=== PATIENT | female | born 2000 | race Caucasian/White ===

== ENCOUNTER 2025-11-10 23:33 | Inpatient (IN) | payer SELFPAY ==
[2025-11-10 23:34] VITALS: BP 129/67; PULSE 105; RESP 18; TEMP 36.4; O2SAT 100; BMI 20.3
[2025-11-11] VITALS (32 sets, daily range): BP systolic 100–177; BP diastolic 57–120; PULSE 100–122; RESP 12–30; TEMP 36.4–37.1; O2SAT 98–100; BMI 20.5; BMI 20.6
[2025-11-11] MEDS: 0.9% Normal Saline (1000mL) 1,000 ML 999 ML IV ×3 (00:01→08:30)
--- NOTE | 2025-11-11 00:01 | EDS_ITS ---
HPI History of Present Illness Chief Complaint: Nausea/Vomiting Narrative Narrative: Patient was seen and examined after presenting to ED for nausea and vomiting started earlier today they went drinking the day before she apparently has had episodes of bloody vomit before has been scoped has not been told that she has had esophageal varices or any other findings that would describe it patient did have some AAA yesterday. PFSH PFS Medical History Type 1 diabetes Allergy/AdvReac Type Severity Reaction Status Date / Time No Known Allergies Allergy Verified 11/10/25 23:34 Social History Smoking Status: Never smoker ROS ROS ED ROS Narrative Pertinent Positives: Nausea vomiting appears bloody Pertinent Negatives: Anticoagulation fevers chills black or bloody stool The remainder of review of systems negative unless otherwise stated in the HPI above. Systems reviewed including constitutional, psychiatric, cardiovascular, respiratory, integument, HENT, gastrointestinal. EXAM Physical Exam Narrative Exam Narrative: Afebrile hemodynamically stable she does not appear toxic but she appears somewhat ill oxygenating well she is actively vomiting does appear darker there could be a blood tinge to it abdomen is soft nontender nondistended intact and equal MSPs. Const Vital Signs: 11/10/25 23:34 11/11/25 00:34 11/11/25 01:00 Temperature 97.5 F L Temperature Source Oral Pulse Rate 105 H 111 H 100 Respiratory Rate 18 16 Blood Pressure 129/67 H 125/57 H 100/70 Blood Pressure Mean 87 79 80 Pulse Ox 100 99 100 Oxygen Delivery Method Room Air MDM MDM MDM Narrative Medical decision making narrative: Nursing notes, triage notes, available previous documentation, and vital signs were reviewed. Any discrepancies noted were addressed. Differential Diagnoses: Could be gastroenteritis we need to evaluate if this is actually bloody low suspicion for varices Interventions: Zofran insulin with insulin drip Fluids Given: 1 L normal saline Labs Reviewed: Patient has leukocytosis 15.7 hemoglobin is 10.4 platelets are 541 patient has a high anion gap with a metabolic acidosis concerning for DKA h er potassium is 5.0 her anion gap is 27 glucose is 579 slight transaminitis but nothing significant and she is not . Venous blood gas she is just slightly acidotic at 7.30 with her pH but pCO2 is 19 with a bicarb of 9 her Hemoccult for her gastric contents was positive for blood and her urine shows 150 ketones Previous Documentation Reviewed: None available or applicable at this time. ED Course: Patient presenting with darker appearing emesis she has been vomiting all day she states that she was scoped before at [facility] with no findings that would describe her emesis. 11/11/2025 at 0219: Patient appears to have put herself into DKA from all the vomiting which was bloody emesis patient can be seen by GI in the hospital as we do have GI coverage today I had a [id number] discussion with the hospitalist who is agreeable to admission this patient should go to the ICU. This note was made utilizing voice recognition software. All attempts were made to correct spelling or other errors prior to note completion. However, due to the fast-paced nature of emergency medicine, some errors may still be present. Lab Data Labs: Laboratory Results - last 24 hr 11/10/25 11/11/25 11/11/25 23:53 01:02 01:13 WBC 15.7 H RBC 4.24 Hgb 10.4 L Hct 33.2 L MCV 78.3 L MCH 24.5 L MCHC 31.3 L RDW Std Deviation 46.9 H RDW Coeff of Curt 16.6 H Plt Count 541 H MPV 9.9 Immature Gran % (Auto) 0.600 Neut % (Auto) 87.3 H Lymph % (Auto) 7.4 L [place] % (Auto) 4.1 Eos % (Auto) 0.1 Baso % (Auto) 0.5 Absolute Neuts (auto) 13.7 H Absolute Lymphs (auto) 1.17 Nucleated RBC % 0 Sodium Cancelled 137 Potassium Cancelled 5.0 Chloride Cancelled 98 Carbon Dioxide Cancelled 12.0 L Anion Gap Cancelled 27 H BUN Cancelled 17 Creatinine Cancelled 1.12 Estim Creat Clear Calc 72.16 Est GFR (MDRD) Non-Af Cancelled 70 BUN/Creatinine Ratio Cancelled 15.2 Glucose Cancelled 579 H* Calcium Cancelled 9.1 Total Bilirubin Cancelled 0.37 AST Cancelled 61 H ALT Cancelled 28 Alkaline Phosphatase Cancelled 134 H Total Protein Cancelled 6.9 Albumin Cancelled 3.6 Globulin Cancelled 3.3 Albumin/Globulin Ratio Cancelled 1.1 Lipase 20 Serum , Qual NEGATIVE Urine Color Yellow Urine Clarity Clear Urine pH 6.0 Ur Specific [place] 1.015 Urine Protein 30 H Urine Glucose (UA) 1000 H Urine Ketones 150 A* Urine Occult Blood Negative Urine Nitrite Negative Urine Bilirubin Negative Urine Urobilinogen Normal Ur Leukocyte Esterase 25 H Urine RBC 0-5 SEEN Urine WBC 5-10 SEEN Ur Squamous Epith Cells 5-10 SEEN Urine Bacteria RARE Urine Mucus 0 SEEN Urine Yeast RARE Blood Type O POSITIVE Antibody Screen NEGATIVE ABG Data ABG results: ABG 11/11/25 02:10 Specimen Type CIARAN Sample Site Not entered VBG pH 7.30 L VBG pO2 86 H VBG HCO3 10 L VBG Total CO2 10 L VBG O2 Sat (Calc) 96 H VBG Base Excess -17 L POC Mix VBG pCO2 Pt Tmp 19.4 L O2 Delivery Device Room Air Discharge Plan Triage Chief Complaint: Nausea/Vomiting ED Provider: Georgina Erazo Dx/Rx/DC Orders Primary Care Provider: Care Physician,No Primary Referrals: Care Physician,No Primary [Primary Care Provider, Medical] Print Language: Lao
[2025-11-11 00:14] LABS: Hematocrit 33.2 % (37-47); Hemoglobin 10.4 g/dL (12.0-15.0); Immature Granulocytes Count 0.090 X10^3/uL (0.0-0.0); Mean Corp Hgb Conc 31.3 g/dL (32-36); Mean Corpuscular Volume 78.3 fL (81-99); Mean Platelet Vol. 9.9 fl (6.2-12.0); NRBC Flagged by Analyzer 0 % (0-5); Platelet Count 541 K/mm3 (150-450); RBC Distribution Width CV 16.6 % (11.6-14.6); RBC Distribution Width SD 46.9 fl (35.1-43.9); Red Blood Count 4.24 M/mm3 (4.2-5.4); White Blood Count 15.7 K/mm3 (4.4-11.0)
[2025-11-11 00:40] LABS: Lipase 20 U/L (13-75)
[2025-11-11 01:00] LABS: Internal QC Validated? YES +Cl - CLEAR BKGD; Pregnancy, Serum, hCG Quali. NEGATIVE Negative
[2025-11-11 01:20] LABS: Mucous, Urine 0 SEEN /hpf (<or=2+)
[2025-11-11 01:29] LABS: Color, Urine Yellow (Yellow); Glucose, Dipstick 1000 mg/dl (Normal); Leukocyte Esterase-Dipstick 25 /ul (Negative); Nitrite-Dipstick Negative (Negative); Occult Blood-Urine Negative /ul (Negative); Protein-Dipstick 30 mg/dl (Negative); Specific Gravity, Urine 1.015 (1.002-1.030); Urine Bilirubin Dipstick Negative (Negative)
[2025-11-11 01:39] LABS: AST(SGOT) 61 U/L (<=31); Alanine Aminotransfer ALT/SGPT 28 U/L (<=34); Albumin, Serum 3.6 g/dL (3.5-5.0); Alkaline Phosphatase 134 U/L (35-104); Anion Gap 27 (7-18); BUN 17 mg/dL (4-19); BUN/Creat Ratio 15.2 RATIO (10-20); Calcium,Total 9.1 mg/dL (7.6-11.0); Carbon Dioxide 12.0 mmol/L (20.0-29.0); Chloride 98 mmol/L (96-106); Estimated Creatinine Clearance 72.16 ml/min (50-250); Globulin 3.3 g/dL (2.2-4.2); Glucose 579 mg/dL (70-99); Potassium 5.0 mmol/L (3.5-5.1)
[2025-11-11 01:40] LABS: Ketone-Dipstick 150 mg/dl (Negative)
[2025-11-11 01:41] LABS: Red Blood Cells-Urine 0-5 SEEN /hpf (0-5); Squamous Epithelial Cells - UA 5-10 SEEN /hpf (5-10); Yeast-Urine RARE /hpf (None Seen)
[2025-11-11 02:15] LABS: SITE Not entered; VBG BASE EXCESS -17 mmol/L (-1.0-3.5); VBG PO2 86 mmHg (25-40); VBG SO2 96 % (50-70); VBG TCO2 10 mmol/L (23-33)
[2025-11-11] MEDS: Insulin Lispro 10 UNIT in Syringe 0 ML 6 UNIT IV (02:32)
[2025-11-11] MEDS: Insulin Lispro 100 UNIT in 0.9% Normal Saline (100mL Bag) 99 ML 7.2 UNIT CONT INF (02:33)
--- NOTE | 2025-11-11 03:34 | PCM.HP.STD ---
HPI - General General Date of Admission: 11/11/25 Chief Complaint: Vomiting HPI Narrative SHANTA CHING, is a 25 F who presents with intractable vomiting followed by hematemesis. The patient has type 1 diabetes, she states she has been drinking alcohol on Wednesday night then that was followed by vomiting which then became coffee-ground. She came to the ED she was in DKA. She stated that when she gets DKA she gets vomiting to the degree that she developed hematemesis. She states she had prior EGDs done for this and denies any ulcer or significant findings. Denies dysuria, abdominal pain or diarrhea. No chest pain or shortness of breath. In the ED glucose was 479, potassium 5.0, sodium 137, anion gap 27 and bicarbonate 12. Excessive ketones in the urine. She received 2 L normal saline, 10 units lispro and started on drip I saw the patient she was actively vomiting coffee-ground material. Was extremely sick and lethargic but oriented and able to answer questions with difficulty Repeat labs after initial management in the ED showed blood sugar of 750, potassium 5.4, bicarbonate 7 but sample was hemolyzed. [facility] Medical History Type 1 diabetes Allergy/AdvReac Type Severity Reaction Status Date / Time No Known Allergies Allergy Verified 11/10/25 23:34 Family History no significant family his Surgical History no surgical history Social History Smoking Status: Never smoker ROS Constitutional Constitutional: Reports anorexia Eyes Eyes: Denies blurry vision Cardiovascular Cardiovascular: Denies chest pain or dyspnea on exertion Respiratory/Chest Respiratory/Chest: Denies cough or excessive phlegm production Gastrointestinal Gastrointestinal: Reports abdominal pain and coffee ground emesis; Denies constipation Genitourinary Genitourinary: Reports urinary frequency Musculoskeletal Musculoskeletal: Denies arthralgias Neurologic Neurologic: Denies abnormal gait Psychiatric Psychiatric: Denies anxiety Patient's Goals Of Care . What would you like to achieve or improve as a result of your hospital stay?: Get better Vital Signs Vital Signs Vital Signs: 11/10/25 23:34 11/11/25 00:34 11/11/25 01:00 Temperature 97.5 F L Temperature Source Oral Pulse Rate 105 H 111 H 100 Respiratory Rate 18 16 Blood Pressure 129/67 H 125/57 H 100/70 Blood Pressure Mean 87 79 80 Pulse Ox 100 99 100 Oxygen Delivery Method Room Air 11/11/25 02:20 11/11/25 03:00 11/11/25 03:12 Temperature 97.6 F L Temperature Source Pulse Rate 111 H 120 H 120 H Respiratory Rate 30 H 30 H Blood Pressure 142/80 H 129/57 H 129/57 H Blood Pressure Mean 100 81 81 Pulse Ox 100 99 99 Oxygen Delivery Method Weight Weight: 59.012 kg Body Mass Index (BMI) 20.3 Physical Exam Const alert and oriented x3 Constitutional Narrative: Lethargic Resp clear to auscultation bilaterally Auscultation: Negative for crackles Cardio regular rate and regular rhythm GI normal to inspection, nondistended, normoactive bowel sounds and non-distended Neuro oriented x3 and moves all extremities Results Lab / Micro Data 11/10/25 23:53 11/11/25 03:08 Labs: Laboratory Results - last 24 hr 11/10/25 23:53: WBC 15.7 H, RBC 4.24, Hgb 10.4 L, Hct 33.2 L, MCV 78.3 L, MCH 24.5 L, MCHC 31.3 L, RDW Std Deviation 46.9 H, RDW Coeff of Curt 16.6 H, Plt Count 541 H, MPV 9.9, Immature Gran % (Auto) 0.600, Neut % (Auto) 87.3 H, Lymph % (Auto) 7.4 L, [place] % (Auto) 4.1, Eos % (Auto) 0.1, Baso % (Auto) 0.5, Absolute Neuts (auto) 13.7 H, Absolute Lymphs (auto) 1.17, Nucleated RBC % 0, Sodium Cancelled, Potassium Cancelled, Chloride Cancelled, Carbon Dioxide Cancelled, Anion Gap Cancelled, BUN Cancelled, Creatinine Cancelled, Est GFR (MDRD) Non-Af Cancelled, BUN/Creatinine Ratio Cancelled, Glucose Cancelled, Calcium Cancelled, Total Bilirubin Cancelled, AST Cancelled, ALT Cancelled, Alkaline Phosphatase Cancelled, Total Protein Cancelled, Albumin Cancelled, Globulin Cancelled, Albumin/Globulin Ratio Cancelled, Lipase 20, Serum , Qual NEGATIVE, Blood Type O POSITIVE, Antibody Screen NEGATIVE 11/11/25 01:02: Sodium 137, Potassium 5.0, Chloride 98, Carbon Dioxide 12.0 L, Anion Gap 27 H, BUN 17, Creatinine 1.12, Estim Creat Clear Calc 72.16, Est GFR (MDRD) Non-Af 70, BUN/Creatinine Ratio 15.2, Glucose 579 H*, Calcium 9.1, Total Bilirubin 0.37, AST 61 H, ALT 28, Alkaline Phosphatase 134 H, Total Protein 6.9, Albumin 3.6, Globulin 3.3, Albumin/Globulin Ratio 1.1 11/11/25 01:13: Urine Color Yellow, Urine Clarity Clear, Urine pH 6.0, Ur Specific [place] 1.015, Urine Protein 30 H, Urine Glucose (UA) 1000 H, Urine Ketones 150 A*, Urine Occult Blood Negative, Urine Nitrite Negative, Urine Bilirubin Negative, Urine Urobilinogen Normal, Ur Leukocyte Esterase 25 H, Urine RBC 0-5 SEEN, Urine WBC 5-10 SEEN, Ur Squamous Epith Cells 5-10 SEEN, Urine Bacteria RARE, Urine Mucus 0 SEEN, Urine Yeast RARE 11/11/25 02:24: POC Glucose > 500 H* 11/11/25 03:04: POC Glucose > 500 H* Micro: Microbiology 11/10/25 23:53 Gastric Fluid/Contents Gastric Occult Blood - Final Occult Blood Positive ABG Data ABG results: ABG 11/11/25 02:10 Specimen Type CIARAN Sample Site Not entered VBG pH 7.30 L VBG pO2 86 H VBG HCO3 10 L VBG Total CO2 10 L VBG O2 Sat (Calc) 96 H VBG Base Excess -17 L POC Mix VBG pCO2 Pt Tmp 19.4 L O2 Delivery Device Room Air Assessment & Plan Assessment/Plan (1) DKA (diabetic ketoacidoses): QUALIFIERS: Diabetes mellitus type: type 1 Diabetes mellitus complication detail: without coma Qualified Code(s): E10.10 - Type 1 diabetes mellitus with ketoacidosis without coma (2) Hematemesis: QUALIFIERS: Nausea presence: unspecified Qualified Code(s): K92.0 - Hematemesis PLAN: Plan Admitted to ICU Fluid resuscitation: Received normal saline, continue with Ringer lactate for any additional boluses Continue insulin infusion per protocol N.p.o. Fingerstick glucose every 1 hour Lantus 16 units subcu x 1 (home dose is 16 Units twice daily): It can be given while on insulin drip before closing anion gap and lead to faster DKA resolution and prevent rebound hyperglycemia later on Sodium is elevated despite hyperglycemia (corrected above 135) so she will need half saline with D5 once sugars are below 250 Frequent electrolytes and magnesium Last potassium 5.5 was hemolyzed, we have to wait for the repeat to start IV potassium. Potassium acetate or citrate are preferred over KCl to avoid hyperchloremic acidosis with subsequent insulin resistance. IV PPI (pantoprazole) 40 mg twice daily for hematemesis Zofran and Compazine to avoid further Vanessa-Hernandez tear Charges/Coding Visit Charges Inpatient E&M: 22504 Init Hosp L3
[2025-11-11 04:02] LABS: Anion Gap 31 (7-18); Chloride 98 mmol/L (96-106)
[2025-11-11 04:03] LABS: Glucose 750 mg/dL (70-99)
[2025-11-11 04:11] LABS: Carbon Dioxide 7.1 mmol/L (20.0-29.0)
[2025-11-11 04:13] LABS: Potassium 5.4 mmol/L (3.5-5.1)
[2025-11-11] MEDS: Insulin Glargine-YFGN 100 UNIT/ML Pen 16 UNIT SC (04:35)
[2025-11-11 04:37] LABS: BETA-HYDROXYBUTYRATE 8.6 mmol/L (0.0-0.3)
[2025-11-11] MEDS: Lactated Ringers 1,000 ML 999 ML IV (04:48)
[2025-11-11] MEDS: Pantoprazole Sodium 40 MG in 0.9% Normal Saline (100mL MB+) 100 ML 300 MG IV ×2 (05:47→22:15)
[2025-11-11] MEDS: Dext 5%-0.45% NS 1,000 ML 200 ML IV (05:50)
[2025-11-11 09:03] LABS: Magnesium 2.0 mg/dL (1.5-2.2)
[2025-11-11 09:07] LABS: Anion Gap 23 (7-18); BUN 14 mg/dL (4-19); BUN/Creat Ratio 13.2 RATIO (10-20); Calcium,Total 8.9 mg/dL (7.6-11.0); Carbon Dioxide 11.5 mmol/L (20.0-29.0); Chloride 109 mmol/L (96-106); Estimated Creatinine Clearance 77.73 ml/min (50-250); Glucose 289 mg/dL (70-99); Potassium 4.5 mmol/L (3.5-5.1)
[2025-11-11] MEDS: proMETHazine 25 MG/ML Syringe 6.25 MG IM (09:56)
[2025-11-11] MEDS: 0.9% Normal Saline (1000mL) 1,000 ML 500 ML IV (09:56)
--- NOTE | 2025-11-11 10:35 | PCM.PN.BLA ---
Progress Note 1. DKA ? Continue with aggressive IV fluids ? Continue with the insulin drip per protocol will make adjustments as indicated ? Potassium is stable and bicarb is improving ? Part of this was induced by binge drinking with significant nausea and vomiting and she did have concern for coffee-ground emesis 2. Hematemesis ? Hemoglobin is stable ? Will monitor ? Continue with PPI ? More than likely given the binge drinking Vanessa-Hernandez tear which oftentimes resolves on its own ? If she continues to have progressive anemia will consult GI DVT: Ambulation
[2025-11-11] MEDS: 0.9% Normal Saline (1000mL) 1,000 ML 250 ML IV ×2 (11:56→15:44)
[2025-11-11 14:41] LABS: Anion Gap 16 (7-18); Carbon Dioxide 17.0 mmol/L (20.0-29.0); Chloride 113 mmol/L (96-106); Magnesium 2.0 mg/dL (1.5-2.2); Potassium 4.4 mmol/L (3.5-5.1)
[2025-11-11] MEDS: Lactated Ringers 1,000 ML 250 ML IV (18:00)
[2025-11-11 18:27] LABS: Anion Gap 14 (7-18); Carbon Dioxide 17.2 mmol/L (20.0-29.0); Chloride 114 mmol/L (96-106); Magnesium 1.9 mg/dL (1.5-2.2); Potassium 4.8 mmol/L (3.5-5.1)
[2025-11-11] MEDS: Insulin Glargine-YFGN 100 UNIT/ML Pen 10 UNIT SC (20:35)
[2025-11-11] MEDS: Lactated Ringers 1,000 ML 125 ML IV (22:14)
[2025-11-12] VITALS (26 sets, daily range): BP systolic 137–179; BP diastolic 82–115; PULSE 76–109; RESP 11–22; TEMP 36.2–36.8; O2SAT 95–100; BMI 21.9
--- NOTE | 2025-11-12 00:10 | EKG12_ITS ---
Test Reason : CHEST PAIN Blood Pressure : */* mmHG Vent. Rate : 100 BPM Atrial Rate : 100 BPM P-R Int : 174 ms QRS Dur : 80 ms QT Int : 350 ms P-R-T Axes : 61 81 65 degrees QTcB Int : 451 ms Normal sinus rhythm Normal ECG No previous ECGs available Confirmed by Narinder Bonilla ([id number]), features editor SUSAN MCCRACKEN ([id number]) on 11/16/2025 10:25:22 AM Referred By: Ritesh Lu Confirmed By: Narinder Bonilla
[2025-11-12] MEDS: MELATONIN 3 MG TABLET PO ×2 (04:27→22:15)
[2025-11-12 04:50] LABS: Magnesium 1.8 mg/dL (1.5-2.2)
[2025-11-12 04:51] LABS: Anion Gap 12 (7-18); BUN 6 mg/dL (4-19); BUN/Creat Ratio 6.8 RATIO (10-20); Calcium,Total 8.8 mg/dL (7.6-11.0); Carbon Dioxide 23.4 mmol/L (20.0-29.0); Chloride 107 mmol/L (96-106); Estimated Creatinine Clearance 104.15 ml/min (50-250); Glucose 268 mg/dL (70-99); Potassium 3.6 mmol/L (3.5-5.1)
[2025-11-12 06:47] LABS: Hematocrit 28.6 % (37-47); Hemoglobin 8.6 g/dL (12.0-15.0); Immature Granulocytes Count 0.090 X10^3/uL (0.0-0.0); Mean Corp Hgb Conc 30.1 g/dL (32-36); Mean Corpuscular Volume 78.8 fL (81-99); Mean Platelet Vol. 9.8 fl (6.2-12.0); NRBC Flagged by Analyzer 0 % (0-5); Platelet Count 355 K/mm3 (150-450); RBC Distribution Width CV 16.8 % (11.6-14.6); RBC Distribution Width SD 47.4 fl (35.1-43.9); Red Blood Count 3.63 M/mm3 (4.2-5.4); White Blood Count 16.3 K/mm3 (4.4-11.0)
[2025-11-12 07:34] LABS: Ferritin 28 ng/mL (22-378); Iron 38 ug/dL (50-170); Iron Binding Capacity,Unsat 444 ug/dL (228-428)
--- NOTE | 2025-11-12 07:45 | NURSING ---
When this RN first entered patient room, patient c/o feeling anxious. This RN questioned patient if she has anxiety at home- patient replied yes, but does not take anything for it and doesn't know what she does to help her anxiety at home. Patient also c/o a weird empty feeling in her stomach. Patient denies feeling nauseated or painful. This RN asked patient if she would like something to eat, patient declined. During assessment this RN noted patient shiver once. Patient afebrile. Before leaving patients room, this RN asked patient if she would like something to help her anxiety, patient declined stating she is not sure it is anxiety she is feeling. Patient declined any other needs at this time. Will continue to monitor.
[2025-11-12 07:59] LABS: Iron Binding Capacity,Total 482 ug/dL (250-450)
--- NOTE | 2025-11-12 08:12 | PN.HOSP_ITS ---
Subjective Subjective Continues to have some nausea and vomiting but says diarrhea is improved. She is no longer had any further hematemesis. Objective Data Objective Data Vital Signs: Vital Signs Temp Pulse Resp BP Pulse Ox O2 Del Method 98.0 F 92 14 160/94 H 97 Room Air 11/12/25 08:00 11/12/25 08:00 11/12/25 08:00 11/12/25 08:00 11/12/25 08:00 11/12/25 08:00 Oxygen Delivery Method Room Air Weight: 139 lb 11.2 oz Body Mass Index (BMI) 21.9 Intake & Output: Intake and Output for Last 24 Hours 11/11/25 11/12/25 11/13/25 03:59 03:59 03:59 Intake Total 1999 7536.62 / 7536.62 Output Total 150 / 150 Balance 1999 7536.62 / 7536.62 -150 / -150 Lab / Micro Data 11/12/25 06:34 11/12/25 04:03 Labs: Laboratory Results - last 24 hr 11/11/25 07:37: POC Glucose 263 H 11/11/25 08:00: Sodium 143, Potassium 4.5, Chloride 109 H, Carbon Dioxide 11.5 L , Anion Gap 23 H, BUN 14, Creatinine 1.05, Estim Creat Clear Calc 77.73, Est GFR (MDRD) Non-Af 76, BUN/Creatinine Ratio 13.2, Glucose 289 H, Calcium 8.9, Phosphorus 3.4, Magnesium 2.0 11/11/25 08:33: POC Glucose 183 H 11/11/25 09:39: POC Glucose 158 H 11/11/25 10:32: POC Glucose 158 H 11/11/25 11:42: POC Glucose 151 H 11/11/25 12:31: POC Glucose 140 H 11/11/25 13:43: POC Glucose 140 H 11/11/25 13:55: Sodium 147 H, Potassium 4.4, Chloride 113 H, Carbon Dioxide 17.0 L, Anion Gap 16, Phosphorus 2.6 L 11/11/25 13:55: Phosphorus 2.7, Magnesium 2.0 11/11/25 14:35: POC Glucose 170 H 11/11/25 15:40: POC Glucose 161 H 11/11/25 16:40: POC Glucose 157 H 11/11/25 17:50: Sodium 144, Potassium 4.8, Chloride 114 H, Carbon Dioxide 17.2 L , Anion Gap 14, Phosphorus 2.8, Magnesium 1.9 11/11/25 17:56: POC Glucose 172 H 11/11/25 18:47: POC Glucose 156 H 11/11/25 22:17: POC Glucose 141 H 11/12/25 00:40: POC Glucose 169 H 11/12/25 04:03: WBC Cancelled, Corrected WBC Cancelled, RBC Cancelled, Hgb Cancelled, Hct Cancelled, MCV Cancelled, MCH Cancelled, MCHC Cancelled, RDW Std Deviation Cancelled, RDW Coeff of Curt Cancelled, Plt Count Cancelled, MPV Cancelled, Immature Gran % (Auto) Cancelled, Neut % (Auto) Cancelled, Lymph % (Auto) Cancelled, [place] % (Auto) Cancelled, Eos % (Auto) Cancelled, Baso % (Auto) Cancelled, Absolute Neuts (auto) Cancelled, Absolute Lymphs (auto) Cancelled, Total Counted Cancelled, Neutrophils % (Manual) Cancelled, Band Neutrophils % Cancelled, Lymphocytes % (Manual) Cancelled, Monocytes % (Manual) Cancelled, Eosinophils % (Manual) Cancelled, Basophils % (Manual) Cancelled, Metamyelocytes % Cancelled, Myelocytes % Cancelled, Promyelocytes % Cancelled, Blast Cells % Cancelled, Plasma Cell % (Manual) Cancelled, Other Cells % Cancelled, Nucleated RBC % Cancelled, Nucleated RBCs/100 WBC Cancelled, Differential Comment Cancelled, Diff Path Review Cancelled, Hypersegmented Neuts Cancelled, Atypical Lymphocytes Cancelled, Reactive Lymphocytes Cancelled, Smudge Cells Cancelled, Toxic Granulation Cancelled, Toxic Vacuolation Cancelled, Dohle Bodies Cancelled, Raphael Rods Cancelled, Platelet Estimate Cancelled, Plt Morphology Comment Cancelled, RBC Morphology Cancelled 11/12/25 04:03: RBC Morphology Cancelled, Polychromasia Cancelled, Hypochromasia Cancelled, Basophilic Stippling Cancelled, Anisocytosis Cancelled, Microcytosis Cancelled, Macrocytosis Cancelled, Spherocytes Cancelled, Sickle Cells Cancelled, Target Cells Cancelled, Tear Drop Cells Cancelled, Ovalocytes Cancelled, Stomatocytes Cancelled, [place] Bodies Cancelled, [place] Cells Cancelled, Bite Cells Cancelled, Crenated Cell Cancelled, Acanthocytes (Spur) Cancelled, Rouleaux Cancelled, Schistocytes Cancelled, Sodium 142, Potassium 3.6, Chloride 107 H, Carbon Dioxide 23.4, Anion Gap 12, BUN 6, Creatinine 0.81, Estim Creat Clear Calc 104.15, Est GFR (MDRD) Non-Af 103, BUN/Creatinine Ratio 6.8 L, Glucose 268 H, Calcium 8.8, Magnesium 1.8, Iron 38 L, TIBC 482 H, Iron Saturation 7.9 L, Unsaturated IBC 444 H, Ferritin 28 11/12/25 06:30: POC Glucose 304 H 11/12/25 06:34: WBC 16.3 H, RBC 3.63 L, Hgb 8.6 L, Hct 28.6 L, MCV 78.8 L, MCH 23.7 L, MCHC 30.1 L, RDW Std Deviation 47.4 H, RDW Coeff of Curt 16.8 H, Plt Count 355, MPV 9.8, Immature Gran % (Auto) 0.600, Neut % (Auto) 87.4 H, Lymph % (Auto) 6.7 L, [place] % (Auto) 5.2, Eos % (Auto) 0.0, Baso % (Auto) 0.1, Absolute Neuts (auto) 14.3 H, Absolute Lymphs (auto) 1.09, Nucleated RBC % 0 Micro: Microbiology 11/10/25 23:53 Gastric Fluid/Contents Gastric Occult Blood - Final Occult Blood Positive Physical Exam Narrative General: Alert, Oriented x3, Cooperative, appears ill HEENT: Atraumatic, PERRLA, EOMI, Normocephalic Oral: Moist Mucosa Neck: Supple, No JVD Lungs: Diminished, Normal air movement, No rhonchi, No wheeze, No rales Cardiovascular: Regular rate, Regular Rhythm, Normal S1, Normal S2, No murmurs Abdomen: Soft, Non Tender, Non-Distended, No Hepato-splenomegaly Extremities: No edema, Capillary Refill Less than 3 Seconds Skin: No rashes, No breakdown Musculoskeletal: No Tenderness to Palpation of Joints or Extremities Neurological: No focal neurological deficits, moves all extremities Psych/Mental Status: Flat Assessment & Plan Assessment/Plan (1) DKA (diabetic ketoacidoses): QUALIFIERS: Diabetes mellitus type: type 1 Diabetes mellitus complication detail: without coma Qualified Code(s): E10.10 - Type 1 diabetes mellitus with ketoacidosis without coma (2) Hematemesis: QUALIFIERS: Nausea presence: unspecified Qualified Code(s): K92.0 - Hematemesis PLAN: Plan 1. DKA ? Her gap is closed x 3, continue with the diet and subcu insulin ? Potassium is stable and bicarb is improving ? Part of this was induced by binge drinking with significant nausea and vomiting and she did have concern for coffee-ground emesis 2. Hematemesis with iron deficiency anemia ? Hemoglobin did drop, will repeat H&H this afternoon ? Continue with PPI ? More than likely given the binge drinking Vanessa-Hernandez tear which oftentimes resolves on its own ? Iron studies do show an iron deficiency anemia, will provide a dose of Venofer today DVT: Ambulation Charges/Coding Visit Charges Inpatient E&M: 32905 Subs Hosp L2
--- NOTE | 2025-11-12 08:46 | CASEMGMT ---
Social Work SW met w/pt briefly to complete SDOH, pt not feeling well this morning so conversation brief. Pt denies any concerns around abuse or DV, it seems the SDOH was triggered in error. Pt lives in [place] w/her mother. She does not have insurance. SW did leave for pt resources for self pay, including [facility] assist, list of medication assistance programs, list of clinics in [facility]. Pt would be agreeable to speak w/Missy from [facility], not at this time however as pt is feeling very ill. SW asked if she would like SW to add her mother to the demographics, pt states not right now as she is not feeling well. SW will speak w/pt again as time allows to see if any additional resources are needed. SW left a message for Missy letting her know pt is willing to speak w/her but not this morning as she is not feeling well. SHANNON Mitchell
[2025-11-12] MEDS: Sodium Ferric Gluconat/Sucrose 250 MG in 0.9% Normal Saline (250mL Bag) 250 ML 135 MG IV (09:08)
[2025-11-12] MEDS: 0.9% Normal Saline (250mL Bag) 250 ML 15 ML IV (09:12)
--- NOTE | 2025-11-12 11:11 | CASEMGMT ---
RUBY TYLER Assessment Face to Face with patient for initial transition planning/care coordination assessment. RUBY TYLER introduced self and role at [facility], pt voices understanding. Pt is A&Ox4 and is resting comfortably in bed and is calm. Pt's SO at the bedside. Care providers, pharmacy, and demographics verified. Admitting dx: DKA, Hematemesis LACE Strata: 1 PCP: No PCP. Pt offered a list of local PCP providers. However, pt declines at this time. Pt states that she already has all of the education that she needs to manage her DM. Specialists: Denies Preferred Pharmacy: [facility] Insurance: SP. SW has provided resources and Missy from [facility] also plans to see the pt. Prescription Benefit: None at this time. However, pt states that she is able to afford her rxs including her insulin and DM supplies. CM to follow. LNOK: Mother, SO Living Arrangements: Pt lives with her mother in a 2 story home with 5 steps to enter ADLs/IADLs: Indep Transportation: Self, SO, mother DME: Pt states that she has a functioning BGM with sufficient testing supplies including lancets, test strips, and EtOH swabs. Pt states that she has enough supplies for her insulin injections as well and denies any concerns or needs at this time. ? HHC/SNF: Denies hx of or needs Pt?s goal: Home Plan: Home once medically ready. Pt denies the need for any further therapy or resources at this time. Pt states that she feels safe returning home once medically ready and denies further questions or concerns at this time. CM to follow rx costs. Godwin Lima RN, CM
[2025-11-12] MEDS: Insulin Glargine-YFGN 100 UNIT/ML Pen 10 UNIT SC ×2 (11:34→22:16)
[2025-11-12] MEDS: Pantoprazole Sodium 40 MG in 0.9% Normal Saline (100mL MB+) 100 ML 300 MG IV ×2 (11:37→22:51)
[2025-11-12 12:08] LABS: Hematocrit 29.8 % (37-47); Hemoglobin 8.9 g/dL (12.0-15.0)
[2025-11-12 19:06] LABS: Anion Gap 15 (7-18); BUN 7 mg/dL (4-19); BUN/Creat Ratio 10.2 RATIO (10-20); Calcium,Total 9.0 mg/dL (7.6-11.0); Carbon Dioxide 23.4 mmol/L (20.0-29.0); Chloride 101 mmol/L (96-106); Estimated Creatinine Clearance 117.16 ml/min (50-250); Glucose 244 mg/dL (70-99); Potassium 3.1 mmol/L (3.5-5.1)
--- NOTE | 2025-11-12 19:46 | PN.HOSP_ITS ---
Hospitalist Note Pt had a 14- and 8-beat run of wide complex VT. Nrsg assessed immediately and found pt on her right side, with right arm flexed and positioned under her head; pt reported feeling funny to nrsg. She had a PICC placed today in her R arm, placement verified by lack of ECG changes on portable monitor per streets and buildings decorator. Suspect advancement of line into atrium with arm elevation. STAT CXR ordered, K 3.1-40meq Kriders ordered in addition to 0.9% NS w/40KCl at 125ml/hr d/t poor PO intake. Discussed CVC line removal vs reposition w/; if pt has adequate PIV access, plan was to remove PICC. 2014-End of PICC line appears to terminate within the right atrium upon my personal review of CXR. CXR read by radiologist with CVC line in cavoatrial junction. 2154-Pt only has a single PIV in her R breast; I made the decision to keep the PICC and withdraw it an additional 2cm. PICC sight assessed, current exposed catheter length outside of insertion point is 2cm. Explained to pt purpose and procedure of repositioning PICC, she stated understanding. She repositioned herself in the bed to allow for extension and external rotation of her right arm, mask placed on her face. Current drsg removed w/clean technique. CHG scrub used circumferentially at insertion site and distally to where the PICC hub will be secured w/sterile technique and allowed to dry. PICC withdrawn an additional 2cm, for a total of 4cm of exposed catheter. New PICC securement device applied, steri-strips applied x2 proximally to insertion site over catheter for trey tional securement, occlusive CHG drsg applied. She tolerated all well. Repeat CXR ordered. 2219-CXR reviewed personally, tip of PICC terminates in SVC now.
--- NOTE | 2025-11-12 19:50 | RAD_ITS ---
PROCEDURE: CHEST 1 VIEW (PORTABLE) 11/12/2025 REASON FOR EXAM: RECENT PICC, NEW ARRHYTHMIA TECHNIQUE: Frontal view of the chest. COMPARISON: None. FINDINGS: Right upper extremity PICC, catheter tip at the superior cavoatrial junction. Normal-sized cardiac silhouette. No vascular congestion. Clear lungs and pleura. RAD/Chest 1 View (Portable) IMPRESSION: Right upper extremity PICC, catheter tip at the superior cavoatrial junction. No acute cardiopulmonary disease. Reading Location: [id number]
--- NOTE | 2025-11-12 20:55 | NURSING ---
At 2019, I contacted [employer] [facility] to report that the patient, Zuly Villalta, had a PICC placed earlier this evening. Following a run of vtach, and a chest xray, it was found to be terminating in the right atrium. [employer] [facility] made a note of this and said they would give us a call back.
--- NOTE | 2025-11-12 20:55 | NURSING ---
2036- PICC RN from [facility], Sully Krishna called unit requesting to speaker to patients nurse. This RN informed her that Sully Murray SUPERIOR [employer] JUSTICE was hoping she could come in to readjust patient's PICC as patient had a 14 beat and 8 beat run of vtach following turning on her side and raising her arm with the PICC in it. PICC Rn infomred that xray was obtained after arrhythmia and it showed that the PICC was in her R atria. Sully Krishna stated she was unable to come back in and readjust PICC as she was 2.5 hrs away. She recommended we pull out the PICC completely or pull it out a few cm and get more imaging. Sully Murray [employer] JUSTICE contacted with PICC RN on the phone and informed of her suggestion.
--- NOTE | 2025-11-12 21:16 | NURSING ---
PICC in Right atrium, holding IV meds until PICC repositioned and chest xray confirmed
--- NOTE | 2025-11-12 22:07 | RAD_ITS ---
PROCEDURE: CHEST 1 VIEW (PORTABLE) 11/12/2025 REASON FOR EXAM: REPOSITIONED PICC TECHNIQUE: Frontal view of the chest. FINDINGS: There are no focal opacities, pleural effusions, or pneumothoraces. The heart size is unremarkable. The upper abdomen is unremarkable. The osseous structures are intact. There is a right-sided central venous access catheter with tip terminating in the region of the cavoatrial junction. RAD/Chest 1 View (Portable) IMPRESSION: No acute cardiopulmonary findings. Right-sided central venous access catheter with tip terminating in the region o f the cavoatrial junction. Reading Location: [id number]
--- NOTE | 2025-11-12 22:14 | PCM.HOSP.N ---
Hospitalist Note Pt having rigors, afebrile. She states to nrsg that she just feels anxious. With further questioning, she reports that she smokes marijuana frequently and vapes nicotine throughout the day. She denies other illicit substance use. She refuses nicotine replacement at this time. Lorazepam 0.5mg PO ordered x1.
[2025-11-12] MEDS: KCL 40mEq in 0.9% NS 40 MEQ/1,000 ML IV.SOLN 125 MEQ IV (22:51)
[2025-11-12] MEDS: Potassium Chloride 10mEq/100mL 10 MEQ/100 ML IV.SOLN. 100 MEQ IV BOLUS ×2 (22:51→23:58)
[2025-11-13] VITALS (10 sets, daily range): BP systolic 134–176; BP diastolic 80–124; PULSE 80–95; RESP 14–21; TEMP 36.6; O2SAT 97–100; BMI 21.7
[2025-11-13] MEDS: Potassium Chloride 10mEq/100mL 10 MEQ/100 ML IV.SOLN. 100 MEQ IV BOLUS ×2 (00:56→01:58)
[2025-11-13 04:59] LABS: Hematocrit 28.8 % (37-47); Hemoglobin 8.6 g/dL (12.0-15.0); Immature Granulocytes Count 0.060 X10^3/uL (0.0-0.0); Mean Corp Hgb Conc 29.9 g/dL (32-36); Mean Corpuscular Volume 79.1 fL (81-99); Mean Platelet Vol. 9.8 fl (6.2-12.0); NRBC Flagged by Analyzer 0 % (0-5); Platelet Count 356 K/mm3 (150-450); RBC Distribution Width CV 16.6 % (11.6-14.6); RBC Distribution Width SD 48.0 fl (35.1-43.9); Red Blood Count 3.64 M/mm3 (4.2-5.4); White Blood Count 13.8 K/mm3 (4.4-11.0)
[2025-11-13 06:15] LABS: Magnesium 1.9 mg/dL (1.5-2.2)
[2025-11-13 06:16] LABS: Anion Gap 17 (7-18); BUN 8 mg/dL (4-19); BUN/Creat Ratio 10.6 RATIO (10-20); Calcium,Total 8.9 mg/dL (7.6-11.0); Carbon Dioxide 19.2 mmol/L (20.0-29.0); Chloride 100 mmol/L (96-106); Estimated Creatinine Clearance 115.56 ml/min (50-250); Glucose 288 mg/dL (70-99); Potassium 4.3 mmol/L (3.5-5.1)
[2025-11-13] MEDS: KCL 40mEq in 0.9% NS 40 MEQ/1,000 ML IV.SOLN 125 MEQ IV (06:54)
[2025-11-13] MEDS: 0.9% Normal Saline (1000mL) 1,000 ML 100 ML IV (07:59)
[2025-11-13] MEDS: Sodium Ferric Gluconat/Sucrose 250 MG in 0.9% Normal Saline (250mL Bag) 250 ML 135 MG IV (08:14)
--- NOTE | 2025-11-13 08:44 | PCM.PN.HOSP ---
Subjective Subjective Feels little bit better, states she is not eating because she does not have an appetite but is not painful or causing increased nausea. Encouraged p.o. intake Objective Data Objective Data Vital Signs: Vital Signs Temp Pulse Resp BP Pulse Ox O2 Del Method O2 Flow Rate 97.9 F 95 20 H 150/90 H 100 Room Air 2 11/13/25 08:06 11/13/25 08:06 11/13/25 08:06 11/13/25 08:06 11/13/25 08:06 11/13/25 08:06 11/13/25 07:00 Oxygen Flow Rate (L/min) 2 Oxygen Delivery Method Room Air Weight: 138 lb 7.205 oz Body Mass Index (BMI) 21.7 Intake & Output: Intake and Output for Last 24 Hours 11/12/25 11/13/25 11/14/25 03:59 03:59 03:59 Intake Total 7536.62 / 7536.62 1184.67 / 1184.67 1145.83 / 1145.83 Output Total 1150 / 1450 300 / 300 Balance 7536.62 / 7536.62 34.67 / -265.33 845.83 / 845.83 Lab / Micro Data 11/13/25 04:45 11/13/25 04:45 Labs: Laboratory Results - last 24 hr 11/12/25 11:32: POC Glucose 354 H 11/12/25 11:50: Hgb 8.9 L, Hct 29.8 L 11/12/25 16:41: POC Glucose 211 H 11/12/25 17:15: Sodium 139, Potassium 3.1 L, Chloride 101, Carbon Dioxide 23.4, Anion Gap 15, BUN 7, Creatinine 0.72, Estim Creat Clear Calc 117.16, Est GFR (MDRD) Non-Af 120, BUN/Creatinine Ratio 10.2, Glucose 244 H, Calcium 9.0 11/12/25 21:40: POC Glucose 254 H 11/13/25 04:45: WBC 13.8 H, RBC 3.64 L, Hgb 8.6 L, Hct 28.8 L, MCV 79.1 L, MCH 23.6 L, MCHC 29.9 L, RDW Std Deviation 48.0 H, RDW Coeff of Curt 16.6 H, Plt Count 356, MPV 9.8, Immature Gran % (Auto) 0.400, Neut % (Auto) 82.1 H, Lymph % (Auto) 10.1 L, [place] % (Auto) 7.0, Eos % (Auto) 0.1, Baso % (Auto) 0.3, Absolute Neuts (auto) 11.3 H, Absolute Lymphs (auto) 1.39, Nucleated RBC % 0, Sodium 136, Potassium 4.3, Chloride 100, Carbon Dioxide 19.2 L, Anion Gap 17, BUN 8, Creatinine 0.73, Estim Creat Clear Calc 115.56, Est GFR (MDRD) Non-Af 118, BUN/Creatinine Ratio 10.6, Glucose 288 H, Calcium 8.9, Phosphorus 2.4 L, Magnesium 1.9 11/13/25 08:13: POC Glucose 286 H Micro: Microbiology 11/10/25 23:53 Gastric Fluid/Contents Gastric Occult Blood - Final Occult Blood Positive Radiography Diagnostic Testing: Radiology Impression Chest X-Ray 11/12/25 19:50 IMPRESSION: Right upper extremity PICC, catheter tip at the superior cavoatrial junction. No acute cardiopulmonary disease. Reading Location: [facility] Chest X-Ray 11/12/25 22:07 IMPRESSION: No acute cardiopulmonary findings. Right-sided central venous access catheter with tip terminating in the region of the cavoatrial junction. Reading Location: [facility] Physical Exam Narrative General: Alert, Oriented x3, Cooperative, appears ill HEENT: Atraumatic, PERRLA, EOMI, Normocephalic Oral: Moist Mucosa Neck: Supple, No JVD Lungs: Diminished, Normal air movement, No rhonchi, No wheeze, No rales Cardiovascular: Regular rate, Regular Rhythm, Normal S1, Normal S2, No murmurs Abdomen: Soft, Non Tender, Non-Distended, No Hepato-splenomegaly Extremities: No edema, Capillary Refill Less than 3 Seconds Skin: No rashes, No breakdown Musculoskeletal: No Tenderness to Palpation of Joints or Extremities Neurological: No focal neurological deficits, moves all extremities Psych/Mental Status: Flat Assessment & Plan Assessment/Plan (1) DKA (diabetic ketoacidoses): QUALIFIERS: Diabetes mellitus type: type 1 Diabetes mellitus complication detail: without coma Qualified Code(s): E10.10 - Type 1 diabetes mellitus with ketoacidosis without coma (2) Hematemesis: QUALIFIERS: Nausea presence: unspecified Qualified Code(s): K92.0 - Hematemesis PLAN: Plan 1. DKA ? Her gap is closed x 3, continue with the diet and subcu insulin ?Will make adjustments to her insulin as indicated ? Part of this was induced by binge drinking with significant nausea and vomiting and she did have concern for coffee-ground emesis 2. Hematemesis with iron deficiency anemia ?Hemoglobin is stabilized ? Continue with PPI ? More than likely given the binge drinking Vanessa-Hernandez tear which oftentimes resolves on its own ? Iron studies do show an iron deficiency anemia, will provide a dose of Venofer today DVT: Ambulation Charges/Coding Visit Charges Inpatient E&M: 04772 Subs Hosp L2
[2025-11-13] MEDS: Pantoprazole Sodium 40 MG in 0.9% Normal Saline (100mL MB+) 100 ML 300 MG IV (10:45)
[2025-11-13] MEDS: Insulin Glargine-YFGN 100 UNIT/ML Pen 10 UNIT SC (11:29)
--- NOTE | 2025-11-13 11:45 | NURSING ---
Patient requesting to go home. This RN explained to patient that she has not been discharged yet by MD and that she medically may not be ready as she has ate and drank very little. This nurse advised patient to stay since she still has been telling medical staff she does not feel good. Risks of going home too early reviewed with patient. Patient still wants to go home today. Dr. Liang notified, per MD she can not be discharged medically today- patient will have to leave AMA. This RN informed patient that the MD will not be discharging her today and that she can sign out AMA if she chooses to do so. Patient states I will discharge myself. AMA papers signed, PICC and PIV removed. Patient walked out with visitor at 1200.
== END 2025-11-13 12:00 | disposition left against medical advice (07) | DRG 638 ==
LOC: ED 11-11 00:12 → ICU 11-11 05:12
PROVIDERS: Admitting Provider Internal Medicine; Emergency Provider Specialist/Technologist Athletic Trainer; Referring Provider Internal Medicine; Visit Provider Family Medicine
DX: E10.10 Type 1 diabetes mellitus with ketoacidosis without coma (principal); I47.29 Other ventricular tachycardia; K92.0 Hematemesis; D50.9 Iron deficiency anemia, unspecified; F17.290 Nicotine dependence, other tobacco product, uncomplicated; F41.9 Anxiety disorder, unspecified
CPT/HCPCS: 36415; 36569; 71045; 80048; 80051; 80053; 81001; 82010; 82271; 82728; 82803; 82947; 82962; 83540; 83550; 83690; 83735; 84100; 84703; 85014; 85018; 85025; 86850; 86900; 86901; 93005; 94762; 99283; 99406; A4216; J2405; J2916